=== PATIENT | female | born 1965 | race Caucasian/White ===

== ENCOUNTER 2017-11-16 13:09 | Emergency (ER) | payer MEDICAID ==
[2017-11-16 13:23] VITALS: BP 118/93
--- NOTE | 2017-11-16 13:37 | ED Physician Documentation ---
PD HPI URI - Stated complaint Stated Complaint: COUGH - Chief complaint Chief Complaint: Resp - History obtained from History obtained from: Patient - History of Present Illness Timing - onset: How many days ago (Several) Timing details: Gradual onset Associated symptoms: Productive cough. No: Fever Similar symptoms before: Diagnosis (Chronic bronchitis) - Additional information Additional information: The patient is a 52-year-old female who presents with cough of 3 days duration. It is productive of sputum. She denies associated fever, chest pain, or shortness of breath. She does have associated headache. Past history is significant for chronic bronchitis. In the past she has always been prescribed Zithromax for similar symptoms. She continues to smoke cigarettes. She has recently moved here from [place] and is concerned about running out of Lexapro. She has an appointment scheduled at a local clinic 2 weeks from now , but her current medication will not last that long. Review of Systems Constitutional: denies: Fever Eyes: denies: Irritation Nose: denies: Congestion Throat: denies: Sore throat Cardiac: denies: Chest pain / pressure Respiratory: reports: Cough. denies: Dyspnea GI: denies: Abdominal Pain, Nausea, Vomiting : denies: Dysuria Skin: denies: Rash Musculoskeletal: denies: Extremity swelling Neurologic: reports: Headache PD PAST MEDICAL HISTORY - Past Medical History Respiratory: COPD Endocrine/Autoimmune: None - Present Medications Home Medications: Ambulatory Orders Medication Instructions Recorded Confirmed Albuterol Sulfate [Proventil Hfa 1 - 2 puffs INH Q4H PRN #1 inhaler 11/16/17 Inhaler] Azithromycin [Zithromax] 250 mg PO DAILY #6 tablet 11/16/17 Escitalopram Oxalate [Lexapro] 20 mg PO DAILY #30 tablet 11/16/17 - Allergies Allergies/Adverse Reactions: Allergies Allergy/AdvReac Type Severity Reaction Status Date / Time No Known Drug Allergies Allergy Verified 11/16/17 13:23 - Social History Does the pt smoke?: Yes Smoking Status: Current every day smoker PD ED PE NORMAL - Vitals Vital signs reviewed: Yes (Borderline diastolic hypertension initially.) - General General: Alert and oriented X 3, Well developed/nourished - HEENT HEENT: Atraumatic, Ears normal, Moist mucous membranes, Pharynx benign - Neck Neck: No adenopathy, No JVD - Cardiac Cardiac: RRR - Respiratory Respiratory: Other (Few scattered coarse breath sounds.) - Abdomen Abdomen: Soft, Non tender - Back Back: No CVA TTP - Derm Derm: No rash - Extremities Extremities: No edema, No calf tenderness / cord - Neuro Neuro: Alert and oriented X 3, No motor deficit, Normal speech Results - Vitals Vitals: Vital Signs - 24 hr 11/16/17 13:19 Temperature 36.8 C Heart Rate 85 Respiratory 20 Rate Blood Pressure 118/93 H O2 Saturation 95 Oxygen O2 Source Room air PD MEDICAL DECISION MAKING - ED course Complexity details: considered differential, d/w patient ED course: The patient's presentation is most consistent with acute/recurrent bronchitis. Her presentation does not suggest pneumonia, congestive heart failure, and I doubt pulmonary embolus. She is being discharged with prescription for Zithromax and for albuterol inhaler. She was also given a prescription for Lexapro. I discussed with her the expected course of illness, encouraged her to stop smoking cigarettes, and discussed potentially worrisome signs or symptoms that should prompt reevaluation in the emergency department. - Sepsis Event Vital Signs: Vital Signs - 24 hr 11/16/17 13:19 Temperature 36.8 C Heart Rate 85 Respiratory 20 Rate Blood Pressure 118/93 H O2 Saturation 95 Oxygen O2 Source Room air Departure - Departure Disposition: 01 Home, Self Care Clinical Impression: Bronchitis Condition: Stable Instructions: ED COPD Flare Follow-Up: [facility] [Provider Group] Prescriptions: Albuterol Sulfate [Proventil Hfa Inhaler] 1 - 2 puffs INH Q4H PRN #1 inhaler PRN Reason: Shortness Of Air/Wheezing Azithromycin [Zithromax] 250 mg PO DAILY #6 tablet Escitalopram Oxalate [Lexapro] 20 mg PO DAILY #30 tablet Comments: Try to stop smoking cigarettes. Take Zithromax daily as prescribed. You can use albuterol inhaler as prescribed if needed for shortness of breath. Follow-up with primary physician within 2 weeks. Call to schedule appointment. Return to the emergency department if you develop increasing difficulty breathing, or otherwise worsening symptoms. Discharge Date/Time: 11/16/17 13:45
== END 2017-11-16 13:45 | disposition home or self-care (01) ==
LOC: ED 13:09
DX: J40 Bronchitis, not specified as acute or chronic (principal); F17.200 Nicotine dependence, unspecified, uncomplicated
CPT/HCPCS: 99283

== ENCOUNTER 2017-12-25 08:00 | Outpatient (CLI) | payer MEDICAID ==
[2017-12-25 12:43] LABS: BASOPHILS # (AUTO) 0.1 10^3/uL (0.0-0.1); BASOPHILS % (AUTO) 0.9 %; EOSINOPHILS # (AUTO) 0.4 10^3/uL (0.0-0.7); EOSINOPHILS % (AUTO) 3.7 %; HGB - HEMOGLOBIN 15.5 g/dL (12.0-16.0); LYMPHOCYTES # (AUTO) 2.3 10^3/uL (1.5-3.5); LYMPHOCYTES % (AUTO) 21.8 %; MEAN CORPUSCULAR HGB CONC 33.8 g/dL (32.0-36.0); MEAN CORPUSCULAR VOLUME 100.4 fL (81.0-99.0); MONOCYTES # (AUTO) 0.7 10^3/uL (0.0-1.0); MONOCYTES % (AUTO) 6.7 %; NEUTROPHILS % (AUTO) 66.9 %; PLT - PLATELET COUNT 221 10^3/uL (130-450); RED BLOOD COUNT 4.57 10^6/uL (4.20-5.40); RED CELL DISTRIBUTION WIDTH 13.2 % (12.0-15.0); WHITE BLOOD COUNT 10.5 x10^3/uL (4.8-10.8)
[2017-12-25 12:59] LABS: ALBUMIN 3.6 g/dL (3.2-5.5); ALBUMIN/GLOBULIN RATIO 1.1 (1.0-2.2); ALKALINE PHOSPHATASE 81 IU/L (42-121); ALT ALANINE AMINOTRANSFERASE 11 IU/L (10-60); AST ASPARTATE AMINOTRANSFERASE 18 IU/L (10-42); BILIRUBIN,TOTAL 0.4 mg/dL (0.2-1.0); BUN - BLOOD UREA NITROGEN 19 mg/dL (6-20); CALCIUM 8.9 mg/dL (8.5-10.3); CARBON DIOXIDE - CO2 27 mmol/L (21-32); CHLORIDE 102 mmol/L (101-111); CHOL/HDL RATIO 4.1 (<4.4); CHOLESTEROL 192 mg/dL; CREATININE 0.7 mg/dL (0.4-1.0); GFR - MDRD 88 (>89); GLUCOSE 120 mg/dL (70-100); HDL CHOLESTEROL 47 mg/dL; LDL CHOLESTEROL,CALCULATED 111 mg/dL; LDL/HDL RATIO 2.4 (<4.4); SODIUM 136 mmol/L (135-145); TOTAL PROTEIN 6.8 g/dL (6.7-8.2); VLDL CHOLESTEROL 34 mg/dL
[2017-12-25 13:10] LABS: HB2 TOTAL 16.4 g/dL; HEMOGLOBIN A1C 0.91 g/dL; HEMOGLOBIN A1C % 7.2 % (4.6-6.2)
[2017-12-25 13:19] LABS: THYROID STIMULATING HORMONE 1.82 uIU/mL (0.34-5.60)
[2017-12-25 13:30] LABS: FOLATE 22.1 ng/mL (5.90 - >24.8)
[2017-12-26 13:22] LABS: HEPATITIS C ANTIBODY NON-REACTIVE (NON-REACTIVE)
== END 2017-12-25 08:01 | disposition home or self-care (01) ==
LOC: LAB.N 08:00
PROVIDERS: ATTEND Nurse Practitioner
DX: E11.49 Type 2 diabetes mellitus with other diabetic neurological complication (principal); R53.83 Other fatigue; E55.9 Vitamin D deficiency, unspecified
CPT/HCPCS: 36415; 80053; 80061; 82043; 82306; 82607; 82746; 83036; 83721; 84443; 85025; 86803

== ENCOUNTER 2018-01-15 08:43 | Day surgery (SDC) | payer MEDICAID ==
[2018-01-15] MEDS ORDERED: LACTATED RINGERS 1,000 ML IV ONE (09:47)
[2018-01-15] MEDS ORDERED: fentaNYL 250 MCG/5 ML VIAL IVP ONE (10:19)
[2018-01-15] MEDS ORDERED: MIDAZOLAM 2 MG/2 ML VIAL IVP ONE (10:19)
[2018-01-15 11:51] VITALS: BP 112/87
== END 2018-01-15 08:44 | disposition home or self-care (01) ==
LOC: SDS 08:43
PROVIDERS: ATTEND Surgery
PROC: 0DJD8ZZ Inspection of Lower Intestinal Tract, Via Natural or Artificial Opening Endoscopic (ICD-10-PCS; principal; 2018-01-15 09:45)
DX: Z12.11 Encounter for screening for malignant neoplasm of colon (principal); I10 Essential (primary) hypertension; E11.9 Type 2 diabetes mellitus without complications; E66.9 Obesity, unspecified; Z68.37 Body mass index [BMI] 37.0-37.9, adult; F17.210 Nicotine dependence, cigarettes, uncomplicated
CPT/HCPCS: 45378; J3010; J7120

== ENCOUNTER 2018-02-05 14:18 | Outpatient (CLI) | payer MEDICAID ==
--- NOTE | 2018-02-18 16:03 | Mammography Report ---
Reason: SCREENING MAMMO Procedure Date: 02/05/2018 Accession Number: [id number] / [id number] Procedure: MGN - Screening Mammo Dig Bilat CPT Code: FULL RESULT: EXAM: Screening Mammo Dig Bilat DATE: 02/05/2018 2:41 PM CLINICAL HISTORY: 52-year-old female with family history of breast cancer in the mother above the age of 65. TECHNIQUE: Bilateral CC and MLO views were obtained. COMPARISON: No studies are available for comparison at the time of interpretation. FINDINGS: The breasts demonstrate scattered fibroglandular densities bilaterally. There are typically benign coarse calcifications in the left breast. No suspicious masses, clustered microcalcifications, or regions of architectural distortion are identified. IMPRESSION: Benign findings RECOMMENDATION: Routine annual screening unless otherwise clinically indicated. BIRADS CATEGORY 2: Benign findings STANDARD QUALIFYING STATEMENTS: 1. This examination was reviewed with the aid of Computer-Aided Detection (CAD). 2. A negative or benign imaging report should not delay biopsy if clinically suspicious findings are present. Consider surgical consultation if warrented. More than 5% of cancers are not identified by imaging. 3. Dense breasts may obscure an underlying neoplasm.
== END 2018-02-05 14:19 | disposition home or self-care (01) ==
LOC: DI.N 14:18
PROVIDERS: ATTEND Nurse Practitioner
DX: Z12.31 Encounter for screening mammogram for malignant neoplasm of breast (principal); Z85.3 Personal history of malignant neoplasm of breast
CPT/HCPCS: 77067

== ENCOUNTER 2018-05-08 15:25 | Outpatient (CLI) | payer MEDICAID ==
--- NOTE | 2018-05-09 09:20 | XRAY Report ---
Reason: bilateral joint pain shoulder Procedure Date: 05/08/2018 Accession Number: [id number] / [id number] Procedure: XRN - Shoulder 3 View BILAT CPT Code: FULL RESULT: Bilateral Shoulder Radiography EXAM DATE: 05/08/2018 03:56 PM. CLINICAL HISTORY: Bilateral joint pain shoulder. COMPARISON: None. TECHNIQUE: 3 views each. FINDINGS: Right: Bones: Normal. No fracture or bone lesion. Joints: Mild degenerative change of the acromioclavicular joint. No glenohumeral dislocation. Soft tissues: The visualized hemithorax is unremarkable. No soft tissue swelling. Left: Bones: Normal. No fracture or bone lesion. Joints: Mild degenerative change of the acromioclavicular joint. No glenohumeral dislocation. Soft tissues: The visualized hemithorax is unremarkable. No soft tissue swelling. IMPRESSION: Mild AC joint degenerative changes without glenohumeral dislocation or fracture. RADIA
== END 2018-05-08 15:26 | disposition home or self-care (01) ==
LOC: DI.N 15:25
PROVIDERS: ATTEND Nurse Practitioner
DX: M19.012 Primary osteoarthritis, left shoulder (principal); M19.011 Primary osteoarthritis, right shoulder

== ENCOUNTER 2018-06-30 13:01 | Outpatient (CLI) | payer MEDICAID ==
[2018-06-30] MEDS ORDERED: ALBUTEROL NEB 2.5 MG/3 ML INH ONE (14:00)
== END 2018-06-30 13:02 | disposition home or self-care (01) ==
LOC: RT 13:01
PROVIDERS: ATTEND Nurse Practitioner
DX: R06.2 Wheezing (principal)
CPT/HCPCS: 94060

== ENCOUNTER 2018-07-29 08:00 | Outpatient (CLI) | payer MEDICAID ==
[2018-07-29 20:10] LABS: ALBUMIN 3.9 g/dL (3.2-5.5); ALBUMIN/GLOBULIN RATIO 1.1 (1.0-2.2); ALKALINE PHOSPHATASE 102 IU/L (42-121); ALT ALANINE AMINOTRANSFERASE 14 IU/L (10-60); AST ASPARTATE AMINOTRANSFERASE 16 IU/L (10-42); BILIRUBIN,TOTAL 0.6 mg/dL (0.2-1.0); BUN - BLOOD UREA NITROGEN 14 mg/dL (6-20); CALCIUM 9.4 mg/dL (8.5-10.3); CARBON DIOXIDE - CO2 29 mmol/L (21-32); CHLORIDE 99 mmol/L (101-111); CHOL/HDL RATIO 3.9 (<4.4); CHOLESTEROL 216 mg/dL; CREATININE 0.7 mg/dL (0.4-1.0); GFR - MDRD 87 (>89); GLUCOSE 198 mg/dL (70-100); HDL CHOLESTEROL 55 mg/dL; LDL CHOLESTEROL,CALCULATED 133 mg/dL; LDL/HDL RATIO 2.4 (<4.4); SODIUM 137 mmol/L (135-145); TOTAL PROTEIN 7.4 g/dL (6.7-8.2); VLDL CHOLESTEROL 28 mg/dL
[2018-07-29 20:49] LABS: HB2 TOTAL 17.5 g/dL; HEMOGLOBIN A1C 1.36 g/dL; HEMOGLOBIN A1C % 9.3 % (4.6-6.2)
== END 2018-07-29 08:01 | disposition home or self-care (01) ==
LOC: LAB.N 08:00
PROVIDERS: ATTEND Nurse Practitioner
DX: E11.49 Type 2 diabetes mellitus with other diabetic neurological complication (principal)
CPT/HCPCS: 36415; 80053; 80061; 82043; 83036; 83721; 84443

== ENCOUNTER 2018-11-13 08:00 | Outpatient (CLI) | payer MEDICAID ==
[2018-11-13 19:17] LABS: ALBUMIN/GLOBULIN RATIO 1.1 (1.0-2.2); ALKALINE PHOSPHATASE 107 IU/L (42-121); ALT ALANINE AMINOTRANSFERASE 12 IU/L (10-60); AST ASPARTATE AMINOTRANSFERASE 14 IU/L (10-42); BILIRUBIN,TOTAL 0.9 mg/dL (0.2-1.0); BUN - BLOOD UREA NITROGEN 14 mg/dL (6-20); CARBON DIOXIDE - CO2 24 mmol/L (21-32); CHLORIDE 98 mmol/L (101-111); CHOL/HDL RATIO 4.4 (<4.4); CHOLESTEROL 197 mg/dL; CREATININE 0.8 mg/dL (0.4-1.0); GFR - MDRD 75 (>89); GLUCOSE 199 mg/dL (70-100); HDL CHOLESTEROL 45 mg/dL; LDL CHOLESTEROL,CALCULATED 118 mg/dL; LDL/HDL RATIO 2.6 (<4.4); SODIUM 134 mmol/L (135-145); TOTAL PROTEIN 7.7 g/dL (6.7-8.2); VLDL CHOLESTEROL 34 mg/dL
== END 2018-11-13 23:59 | disposition home or self-care (01) ==
LOC: LAB.N 08:00
PROVIDERS: ATTEND Nurse Practitioner Gerontology
DX: E55.9 Vitamin D deficiency, unspecified (principal)
CPT/HCPCS: 36415; 80053; 80061; 81599; 82043; 82570; 83036; 83721; 84443

== ENCOUNTER 2018-12-04 01:58 | Emergency (ER) | payer MEDICAID ==
--- NOTE | 2018-12-04 02:41 | ED Physician Documentation ---
PD HPI HEENT - Stated complaint Stated Complaint: SORE THROAT - Chief complaint Chief Complaint: Heent - History obtained from History obtained from: Patient - History of Present Illness Timing - onset: How many days ago (2) Timing - duration: Days Timing - details: Gradual onset, Constant, Waxing and waning Pain level now: 8 Location: Throat Improves: Nothing Worsens: Swalllowing Associated symptoms: Fever (subjective (did not take temperature at home but chills/sweats)) Similar symptoms before: Has not had sx before Recently seen: Not recently seen Review of Systems Constitutional: reports: Chills, Sweats Throat: reports: Sore throat PD PAST MEDICAL HISTORY - Past Medical History Cardiovascular: Hypertension, High cholesterol, [place] Respiratory: Asthma, Other Endocrine/Autoimmune: Type 2 diabetes GI: None : None HEENT: None Psych: Depression, Anxiety Musculoskeletal: None Derm: None - Past Surgical History /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[employer]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 - Present Medications Home Medications: Ambulatory Orders Medication Instructions Recorded Confirmed Albuterol Sulfate [Proventil Hfa 1 - 2 puffs INH Q4H PRN #1 inhaler 11/16/17 12/04/18 Inhaler] Aspirin [Adult Low Dose Aspirin EC] 81 mg .ROUTE DAILY 01/15/18 12/04/18 Atorvastatin Calcium 20 mg PO DAILY 01/15/18 12/04/18 Empagliflozin [Jardiance] 25 mg PO DAILY 01/15/18 12/04/18 Escitalopram Oxalate [Lexapro] 20 mg PO DAILY 01/15/18 12/04/18 Lisinopril 10 mg PO DAILY 01/15/18 12/04/18 SITagliptin [Januvia] 100 mg PO DAILY 01/15/18 12/04/18 Varenicline Tartrate [Chantix] 1 mg PO DAILY 01/15/18 12/04/18 clonazePAM [Clonazepam] 0.5 mg PO DAILY 01/15/18 12/04/18 HYDROcod/ACETAM 5/325 [[place] 5/325] 1 - 2 ea PO Q6H PRN #15 tablet 12/04/18 Lidocaine Viscous 2% [Xylocaine 15 ml MM Q4H PRN #1 bottle 12/04/18 Viscous 2%] - Allergies Allergies/Adverse Reactions: Allergies Allergy/AdvReac Type Severity Reaction Status Date / Time No Known Drug Allergies Allergy Verified 12/04/18 02:34 - Social History Does the pt smoke?: Yes Smoking Status: Current every day smoker PD ED PE NORMAL - Vitals Vital signs reviewed: Yes - General General: Alert and oriented X 3, Well developed/nourished, Other (appears uncomfortable) - HEENT HEENT: Moist mucous membranes - Neck Neck: Supple, no meningeal sign PD ED PE EXPANDED - HEENT HEENT: Pharyngeal erythema, Swollen tonsils, Tonsillar exudate Results - Vitals Vitals: Vital Signs - 24 hr 12/04/18 12/04/18 12/04/18 02:30 03:30 04:00 Temperature 37.0 C 39.5 C H 37.4 C Heart Rate 125 H 115 H 108 H Respiratory 18 20 18 Rate Blood Pressure 143/96 H 101/61 101/64 O2 Saturation 95 94 95 Oxygen O2 Source Room air - Labs Labs: Laboratory Tests 12/04/18 12/04/18 02:35 02:40 POC Whole Bld Glucose 195 H Group A Strep Rapid POSITIVE H PD MEDICAL DECISION MAKING - ED course Complexity details: reviewed results, re-evaluated patient, considered differential, d/w patient ED course: Patient requests IM antibiotic. I explained that this is a particularly painful shot but it is also quite effective and can be given as a one-time dose (no rx antibiotic needed) and she confirms she wants the IM injection; bicillin L-A 1.2 million units given Departure - Departure Disposition: 01 Home, Self Care Clinical Impression: Strep pharyngitis Condition: Good Health Concerns: strep throat Plan of Treatment: antibiotic given in ER (one time dose). prescription analgesic Care Goals: relief of symptoms until resolution of infection Assessment: see diagnosis Instructions: ED Strep Pharyngitis Conf Follow-Up: Lilliam Concepcion ARNP [Primary Care Provider] - (3-4 days if symptoms not improving) Prescriptions: HYDROcod/ACETAM 5/325 [[place] 5/325] 1 - 2 ea PO Q6H PRN #15 tablet PRN Reason: Pain Lidocaine Viscous 2% [Xylocaine Viscous 2%] 15 ml MM Q4H PRN #1 bottle PRN Reason: Pain Discharge Date/Time: 12/04/18 04:03
[2018-12-04] MEDS ORDERED: LIDOCAINE VISCOUS 2% 15 ML UDC MM STA (03:03)
[2018-12-04] MEDS ORDERED: PENICILLIN G BENZATHINE 600,000 UNIT/ML SYRINGE IM STA (03:03)
[2018-12-04] MEDS ORDERED: HYDROcod/ACET 5/325 Prepack 4 PO STA (03:04)
[2018-12-04 04:03] VITALS: BP 101/64
== END 2018-12-04 04:03 | disposition home or self-care (01) ==
LOC: ED 01:58
DX: J02.0 Streptococcal pharyngitis (principal); I10 Essential (primary) hypertension; E11.9 Type 2 diabetes mellitus without complications; Z79.84 Long term (current) use of oral hypoglycemic drugs; Z79.82 Long term (current) use of aspirin; F17.200 Nicotine dependence, unspecified, uncomplicated
CPT/HCPCS: 87430; 96372; 99283

== ENCOUNTER 2019-02-07 08:00 | Outpatient (CLI) | payer MEDICAID ==
[2019-02-07 19:17] LABS: HB2 TOTAL 17.2 g/dL; HEMOGLOBIN A1C 1.09 g/dL; HEMOGLOBIN A1C % 7.9 % (4.6-6.2)
== END 2019-02-07 23:59 | disposition home or self-care (01) ==
LOC: LAB.N 08:00
PROVIDERS: ATTEND Nurse Practitioner Gerontology
DX: E11.49 Type 2 diabetes mellitus with other diabetic neurological complication (principal)
CPT/HCPCS: 36415; 83036

== ENCOUNTER 2019-05-20 13:53 | Outpatient (CLI) | payer MEDICAID ==
[2019-05-20 19:09] LABS: CALCIUM 10.2 mg/dL (8.5-10.3); CREATININE 0.9 mg/dL (0.4-1.0)
[2019-05-20 19:24] LABS: CREATININE,URINE 98.7 mg/dL; MICROALBUMIN,URINE 0.3 mg/dL (0-300.0)
[2019-05-20 19:48] LABS: HB2 TOTAL 17.7 g/dL; HEMOGLOBIN A1C 1.03 g/dL; HEMOGLOBIN A1C % 7.5 % (4.6-6.2)
== END 2019-05-20 23:59 | disposition home or self-care (01) ==
LOC: LAB.N 13:53
PROVIDERS: ATTEND Nurse Practitioner Gerontology
DX: E11.49 Type 2 diabetes mellitus with other diabetic neurological complication (principal)
CPT/HCPCS: 36415; 80048; 82043; 82570; 83036

== ENCOUNTER 2019-05-23 12:28 | Outpatient (CLI) | payer MEDICAID ==
--- NOTE | 2019-05-26 08:36 | Mammography Report ---
Reason: ROUTINE MAMMO Procedure Date: 05/23/2019 Accession Number: [id number] / [id number] Procedure: MGN - Screening Mammo Dig Bilat CPT Code: Final Report FULL RESULT: EXAM: Screening Mammo Dig Bilat DATE: 05/23/2019 12:56 PM CLINICAL HISTORY: Screening encounter. History of early menses. Family history of breast cancer in the mother at the age of 65. TECHNIQUE: (B) - Bilateral CC and MLO views were obtained. COMPARISON: 02/05/2018. PARENCHYMAL PATTERN: (A) - The breast(s) demonstrate(s) scattered fibroglandular densities. FINDINGS: There are no suspicious masses, calcifications, or areas of distortion. IMPRESSION: Negative examination. BI-RADS category 1. RECOMMENDATION: (ANNUAL) - Recommend routine annual screening mammography. BI-RADS CATEGORY: (1) - Negative. STANDARD QUALIFYING STATEMENTS: 1. This examination was not reviewed with the aid of Computer-Aided Detection (CAD). 2. A negative or benign imaging report should not preclude biopsy if clinically suspicious findings are present. 3. Dense breasts may obscure an underlying neoplasm. 4. This examination was reviewed without the aid of 3D breast imaging (tomosynthesis).
== END 2019-05-23 12:29 | disposition home or self-care (01) ==
LOC: DI.N 12:28
PROVIDERS: ATTEND Nurse Practitioner Gerontology
DX: Z12.31 Encounter for screening mammogram for malignant neoplasm of breast (principal); Z80.3 Family history of malignant neoplasm of breast
CPT/HCPCS: 77067

== ENCOUNTER 2019-06-24 11:17 | Emergency (ER) | payer MEDICAID ==
[2019-06-24 12:27] VITALS: BP 119/84
[2019-06-24] MEDS ORDERED: BUPIVACAINE 0.5%-EPI 1:200000 PF 10 ML VIAL SUBQ STA (12:30)
--- NOTE | 2019-06-24 12:33 | ED Physician Documentation ---
PD HPI HEENT FB - Chief complaint Chief Complaint: Heent - History obtained from History obtained from: Patient - History of Present Illness Timing - onset: Yesterday (This is a 54-year-old woman who presents by private vehicle for complaints of dental pain and facial swelling, that the pain is been going on for a long time, she has not seen a dentist since 2012 because that is when her dental insurance lapsed. The swelling started yesterday is now quite impressive, she has not had any fevers or chills.) Review of Systems Constitutional: denies: Fever, Chills Nose: denies: Rhinorrhea / runny nose, Congestion Throat: reports: Dental pain / toothache. 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 - Present Medications Home Medications: Ambulatory Orders Medication Instructions Recorded Confirmed Albuterol Sulfate [Proventil Hfa 1 - 2 puffs INH Q4H PRN #1 inhaler 11/16/17 12/04/18 Inhaler] Aspirin [Adult Low Dose Aspirin EC] 81 mg .ROUTE DAILY 01/15/18 12/04/18 Atorvastatin Calcium 20 mg PO DAILY 01/15/18 12/04/18 Empagliflozin [Jardiance] 25 mg PO DAILY 01/15/18 12/04/18 Escitalopram Oxalate [Lexapro] 20 mg PO DAILY 01/15/18 12/04/18 SITagliptin [Januvia] 100 mg PO DAILY 01/15/18 12/04/18 Varenicline Tartrate [Chantix] 1 mg PO DAILY 01/15/18 12/04/18 clonazePAM [Clonazepam] 0.5 mg PO DAILY 01/15/18 12/04/18 lisinopriL [Lisinopril] 10 mg PO DAILY 01/15/18 12/04/18 HYDROcod/ACETAM 5/325 [[place] 5/325] 1 - 2 ea PO Q6H PRN #15 tablet 12/04/18 Lidocaine Viscous 2% [Xylocaine 15 ml MM Q4H PRN #1 bottle 12/04/18 Viscous 2%] Clindamycin HCl [Clindamycin 300MG 300 mg PO Q6H #40 capsule 06/24/19 CAP] Oxycodone HCl/Acetaminophen 1 - 2 each PO Q6H PRN #14 tablet 06/24/19 [Percocet 5-325 mg Tablet] - Allergies Allergies/Adverse Reactions: Allergies Allergy/AdvReac Type Severity Reaction Status Date / Time No Known Drug Allergies Allergy Verified 06/24/19 11:50 - Social History Does the pt smoke?: Yes Smoking Status: Current every day smoker Does the pt drink ETOH?: Yes Does the pt have substance abuse?: Yes Substance Use and Type: Marijuana - Immunizations Immunizations are current?: Yes - POLST Patient has POLST: No PD ED PE NORMAL - Vitals Vital signs reviewed: Yes - General General: Alert and oriented X 3, No acute distress - HEENT HEENT: PERRL, EOMI, Other (She has generally poor dentition with large cavities of the last 2 remaining molars on the right man is a large overlying gingival abscess with reactive facial swelling. No sublingual edema or trismus.) - Neck Neck: Supple, no meningeal sign, No bony TTP - Neuro Neuro: Alert and oriented X 3, Normal speech - Psych Psych: Normal mood, Normal affect Results - Vitals Vitals: Vital Signs - 24 hr 06/24/19 06/24/19 11:41 12:26 Temperature 36.1 C L 37 C Heart Rate 107 H 118 H Respiratory 22 16 Rate Blood Pressure 118/83 H 119/84 H O2 Saturation 98 96 Oxygen O2 Source Room air Procedures - Abscess I&D (location) right mandibular abscess Preparation: Lidocaine 1% (right inferior alveolar block) Incision: Incised with scalpel. No: Purulent drainage Other: Pt tolerated well, Antibiotic prescribed Departure - Departure Disposition: Home, Self Care Clinical Impression: Dental abscess Condition: Good Record reviewed to determine appropriate education?: Yes Instructions: ED Dental Abscess Facial Cellulitis Prescriptions: Clindamycin HCl [Clindamycin 300MG CAP] 300 mg PO Q6H #40 capsule Oxycodone HCl/Acetaminophen [Percocet 5-325 mg Tablet] 1 - 2 each PO Q6H PRN #14 tablet PRN Reason: pain Comments: It is very important that you follow-up with a dentist. When it comes to dental problems like yours, the emergency department can only offer a short-term solution to your long-term problem. A couple of low cost options for dental care include: [facility] in [place], calls [phone] for an appointment Or [facility] in [place], call [phone] for an appointment.
[2019-06-24] MEDS ORDERED: BUFFERED LIDOCAINE 10 ML SYRINGE ONE (12:41)
== END 2019-06-24 13:13 | disposition home or self-care (01) ==
LOC: ED 11:17
DX: K04.7 Periapical abscess without sinus (principal); K02.9 Dental caries, unspecified; I10 Essential (primary) hypertension; E11.9 Type 2 diabetes mellitus without complications; Z79.84 Long term (current) use of oral hypoglycemic drugs; Z79.82 Long term (current) use of aspirin; F17.200 Nicotine dependence, unspecified, uncomplicated
CPT/HCPCS: 41800; 99282; 99284

== ENCOUNTER 2019-09-12 14:42 | Emergency (ER) | payer MEDICAID ==
[2019-09-12 15:11] VITALS: BP 115/84
[2019-09-12 15:22] LABS: RAPID STREP SCREEN Negative (Negative)
--- NOTE | 2019-09-12 15:41 | ED Physician Documentation ---
PD HPI URI - Stated complaint Stated Complaint: THROAT PX - Chief complaint Chief Complaint: Heent - History obtained from History obtained from: Patient - History of Present Illness Timing - onset: How many days ago (2) Timing duration: Days (2) Timing details: Abrupt onset, Still present Associated symptoms: Chills, Sore throat, Swollen nodes. No: Nasal congestion, Dry cough Contributing factors: No: Sick contact, Travel, Immunocompromised Similar symptoms before: Diagnosis (strep tonsillitis last fall.) Recently seen: Not recently seen (tried to get to PCP but was told to come to ER.) Review of Systems Constitutional: reports: Fever, Chills Nose: denies: Rhinorrhea / runny nose, Congestion Throat: reports: Sore throat, Swollen tonsils Respiratory: denies: Cough GI: denies: Nausea, Vomiting Skin: denies: Rash, Lesions PD PAST MEDICAL HISTORY - Past Medical History Past Medical History: Yes Cardiovascular: Hypertension, High cholesterol, [place] Respiratory: Asthma, Other Endocrine/Autoimmune: Type 2 diabetes GI: None : None HEENT: None Psych: Depression, Anxiety Musculoskeletal: None Derm: None - 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 - Present Medications Home Medications: Ambulatory Orders Medication Instructions Recorded Confirmed Albuterol Sulfate [Proventil Hfa 1 - 2 puffs INH Q4H PRN #1 inhaler 11/16/17 12/04/18 Inhaler] Aspirin [Adult Low Dose Aspirin EC] 81 mg .ROUTE DAILY 01/15/18 12/04/18 Atorvastatin Calcium 20 mg PO DAILY 01/15/18 12/04/18 Empagliflozin [Jardiance] 25 mg PO DAILY 01/15/18 12/04/18 Escitalopram Oxalate [Lexapro] 20 mg PO DAILY 01/15/18 12/04/18 SITagliptin [Januvia] 100 mg PO DAILY 01/15/18 12/04/18 Varenicline Tartrate [Chantix] 1 mg PO DAILY 01/15/18 12/04/18 clonazePAM [Clonazepam] 0.5 mg PO DAILY 01/15/18 12/04/18 lisinopriL [Lisinopril] 10 mg PO DAILY 01/15/18 12/04/18 HYDROcod/ACETAM 5/325 [[place] 5/325] 1 - 2 ea PO Q6H PRN #15 tablet 12/04/18 Lidocaine Viscous 2% [Xylocaine 15 ml MM Q4H PRN #1 bottle 12/04/18 Viscous 2%] Clindamycin HCl [Clindamycin 300MG 300 mg PO Q6H #40 capsule 06/24/19 CAP] Oxycodone HCl/Acetaminophen 1 - 2 each PO Q6H PRN #14 tablet 06/24/19 [Percocet 5-325 mg Tablet] Cephalexin [Keflex] 500 mg PO TID #20 capsule 09/12/19 Oxycodone HCl/Acetaminophen 1 each PO Q6H PRN #12 tablet 09/12/19 [Percocet 10-325 mg Tablet] dexAMETHasone [Decadron] 4 mg PO DAILY #5 tablet 09/12/19 - Allergies Allergies/Adverse Reactions: Allergies Allergy/AdvReac Type Severity Reaction Status Date / Time No Known Drug Allergies Allergy Verified 09/12/19 15:11 - Social History Does the pt smoke?: Yes Smoking Status: Current every day smoker Does the pt drink ETOH?: Yes Does the pt have substance abuse?: Yes - Immunizations Immunizations are current?: Yes - POLST Patient has POLST: No PD ED PE NORMAL - Vitals Vital signs reviewed: Yes - General General: Alert and oriented X 3, No acute distress (hurts to swallow), Well developed/nourished - HEENT HEENT: No: Pharynx benign (both tonsils swollen without peritonsillar edema. Exudates noted, and she has submandibular swollen glands) - Neck Neck: Supple, no meningeal sign - Cardiac Cardiac: RRR, No murmur - Respiratory Respiratory: Clear bilaterally - Derm Derm: Normal color, Warm and dry Results - Vitals Vitals: Vital Signs - 24 hr 09/12/19 09/12/19 15:09 16:40 Temperature 36.7 C Heart Rate 110 H 105 H Respiratory 16 Rate Blood Pressure 115/84 H O2 Saturation 98 98 Oxygen O2 Source Room air - Labs Labs: Laboratory Tests 09/12/19 15:05 Group A Strep Rapid Negative Departure - Departure Disposition: 01 Home, Self Care Clinical Impression: Exudative tonsillitis Condition: Stable Record reviewed to determine appropriate education?: Yes Instructions: ED Strep Pharyngitis Poss Prescriptions: Cephalexin [Keflex] 500 mg PO TID #20 capsule dexAMETHasone [Decadron] 4 mg PO DAILY #5 tablet Oxycodone HCl/Acetaminophen [Percocet 10-325 mg Tablet] 1 each PO Q6H PRN #12 tablet PRN Reason: Pain Comments: Stay well-hydrated and drink lots of fluids. Cephalexin as directed for the next week at least pending the culture result. Clinically this looks enough bacterial to treated as such. Decadron steroid for inflammation daily for the next several days. Add ibuprofen or naproxen 2-3 times a day for pain and to that add Tylenol or oxycodone if needed for worse pain. I would anticipate the pain to decrease considerably over the next couple of days so you should not be needing pain medicines for very long. Your rapid strep test was negative but is not completely accurate. The culture should result in about 3 days. Discharge Date/Time: 09/12/19 16:40
[2019-09-12] MEDS ORDERED: DEXAMETHASONE 10 MG/ML VIAL PO STA (16:16)
[2019-09-12] MEDS ORDERED: cephALEXin 250 MG CAPSULE PO STA (16:16)
[2019-09-12] MEDS ORDERED: CHERRY SYRUP 10 ML UDC PO ONE (16:16)
[2019-09-12] MEDS ORDERED: oxyCODONE 5 MG TABLET PO STA (16:18)
== END 2019-09-12 16:40 | disposition home or self-care (01) ==
LOC: ED 14:42
DX: J03.90 Acute tonsillitis, unspecified (principal); I10 Essential (primary) hypertension; E11.9 Type 2 diabetes mellitus without complications; F17.200 Nicotine dependence, unspecified, uncomplicated; Z79.84 Long term (current) use of oral hypoglycemic drugs
CPT/HCPCS: 87070; 87077; 87430; 99283; A9270

== ENCOUNTER 2019-11-03 01:34 | Emergency (ER) | payer MEDICAID ==
--- NOTE | 2019-11-03 01:46 | ED Physician Documentation ---
PD HPI CHEST PAIN - Stated complaint Stated Complaint: CHEST DISCOMFORT - History obtained from History obtained from: Patient - History of Present Illness Timing - onset: Enter time (23:30), Today Timing - onset during: Other (vomiting) Timing - details: Abrupt onset Pain level now: 4 Quality: Other (per patient, "feels like something stuck", "like a blockage") Location: Substernal Radiation: Other (no radiation) Improved by: Nothing Worsened by: Other (no ameliorating factors) Associated symptoms: Nausea, Vomiting. No: Shortness of air, Diaphoresis, Feeling faint / dizzy, General Weakness, Palpitations Similar symptoms before: Has not had sx before Recently seen: Not recently seen - Additional information Additional information: patient says she woke up this morning at approximately 8:30 AM with nausea, vomiting, chills, diaphoresis. She says "I haven't eaten anything all day" because of these symptoms. denies diarrhea. At 11:30 PM tonight, she was vomiting when she developed sudden sensation of midline chest discomfort. She has difficulty describing the discomfort to me; she says "it's not a pain, just uncomfortable" and repeatedly returns to description of "like a blockage, like something's stuck that has to be cleared". I ask if she means a blockage in her heart or circulation, and she says this is not what she means, but she also says she isn't trying to describe sensation of something stuck in her esophagus, either. Asked to show where her pain is, she clenches a fist and places it over her midline chest Review of Systems Constitutional: reports: Fever (subjective (did not take temperature at home)), Chills, Sweats Eyes: reports: Reviewed and negative Ears: reports: Reviewed and negative Nose: reports: Reviewed and negative Throat: reports: Sore throat, Reviewed and negative Cardiac: reports: Chest pain / pressure. denies: Palpitations, Pedal edema, Calf pain Respiratory: reports: Reviewed and negative GI: reports: Nausea, Vomiting. denies: Abdominal Pain, Abdominal Swelling, Constipation, Diarrhea : denies: Dysuria, Frequency Skin: reports: Reviewed and negative Musculoskeletal: reports: Reviewed and negative Neurologic: reports: Reviewed and negative PD PAST MEDICAL HISTORY - Past Medical History Past Medical History: Yes Cardiovascular: Hypertension, High cholesterol, [place], Other (regarding cardiac history, patient says she had an cardiac cath/angio in 2013 which, per patient, revealed no abnormalities; she says she was told she had a "stress-induced heart attack") Respiratory: Asthma, Other Endocrine/Autoimmune: Type 2 diabetes GI: None : None HEENT: None Psych: Depression, Anxiety Musculoskeletal: None Derm: None - 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 - Present Medications Home Medications: Ambulatory Orders Medication Instructions Recorded Confirmed Albuterol Sulfate [Proventil Hfa 1 - 2 puffs INH Q4H PRN #1 inhaler 11/16/17 12/04/18 Inhaler] Aspirin [Adult Low Dose Aspirin EC] 81 mg .ROUTE DAILY 01/15/18 12/04/18 Atorvastatin Calcium 20 mg PO DAILY 01/15/18 12/04/18 Empagliflozin [Jardiance] 25 mg PO DAILY 01/15/18 12/04/18 Escitalopram Oxalate [Lexapro] 20 mg PO DAILY 01/15/18 12/04/18 SITagliptin [Januvia] 100 mg PO DAILY 01/15/18 12/04/18 Varenicline Tartrate [Chantix] 1 mg PO DAILY 01/15/18 12/04/18 clonazePAM [Clonazepam] 0.5 mg PO DAILY 01/15/18 12/04/18 lisinopriL [Lisinopril] 10 mg PO DAILY 01/15/18 12/04/18 HYDROcod/ACETAM 5/325 [[place] 5/325] 1 - 2 ea PO Q6H PRN #15 tablet 12/04/18 Lidocaine Viscous 2% [Xylocaine 15 ml MM Q4H PRN #1 bottle 12/04/18 Viscous 2%] Clindamycin HCl [Clindamycin 300MG 300 mg PO Q6H #40 capsule 06/24/19 CAP] Oxycodone HCl/Acetaminophen 1 - 2 each PO Q6H PRN #14 tablet 06/24/19 [Percocet 5-325 mg Tablet] Cephalexin [Keflex] 500 mg PO TID #20 capsule 09/12/19 Oxycodone HCl/Acetaminophen 1 each PO Q6H PRN #12 tablet 09/12/19 [Percocet 10-325 mg Tablet] dexAMETHasone [Decadron] 4 mg PO DAILY #5 tablet 09/12/19 - Allergies Allergies/Adverse Reactions: Allergies Allergy/AdvReac Type Severity Reaction Status Date / Time No Known Drug Allergies Allergy Verified 11/03/19 01:46 - Social History Does the pt smoke?: Yes Smoking Status: Current every day smoker Does the pt drink ETOH?: Yes Does the pt have substance abuse?: Yes - Immunizations Immunizations are current?: Yes - POLST Patient has POLST: No PD ED PE NORMAL - Vitals Vital signs reviewed: Yes - General General: Alert and oriented X 3, Well developed/nourished, Other (appears uncomfortable) - HEENT HEENT: Moist mucous membranes - Neck Neck: Supple, no meningeal sign - Cardiac Cardiac: RRR, No murmur, No gallop, No rub - Respiratory Respiratory: No respiratory distress, Clear bilaterally - Abdomen Abdomen: Normal bowel sounds, Soft, Non tender, Non distended - Back Back: No CVA TTP - Derm Derm: Normal color, Warm and dry, No rash - Extremities Extremities: No edema - Neuro Neuro: Alert and oriented X 3 Results - Vitals Vitals: Vital Signs - 24 hr 11/03/19 11/03/19 11/03/19 01:46 03:11 03:50 Temperature 36.9 C Heart Rate 116 H 90 88 Respiratory 22 17 18 Rate Blood Pressure 130/91 H 134/68 H 111/65 O2 Saturation 99 94 93 Oxygen O2 Source Room air - EKG (time done) No standard instances Rate: Rate (enter#) (109), Tachy Rhythm: Sinus tachycardia [place]: Normal Intervals: Normal [place] QRS: Low voltage Ischemia: Normal ST segments #2 Rate: Rate (enter#) (92) Rhythm: NSR [place]: LAD Intervals: Normal FL QRS: Low voltage Ischemia: Normal ST segments, Q waves (III, aVF) - Labs Labs: Laboratory Tests 11/03/19 11/03/19 11/03/19 02:07 02:07 02:07 WBC 22.0 H RBC 5.28 Hgb 16.9 H Hct 50.6 H MCV 95.8 MCH 32.0 H MCHC 33.4 RDW 12.6 Plt Count 336 MPV 9.6 Neut # (Auto) 19.3 H Lymph # (Auto) 1.5 [place] # (Auto) 0.8 Eos # (Auto) 0.0 Baso # (Auto) 0.1 Absolute Nucleated RBC 0.00 Band Neuts % (Manual) Not Reportable Abnorm Lymph % (Manual) Not Reportable Nucleated RBC % 0.0 Neutrophils # (Manual) Not Reportable Lymphocytes # (Manual) Not Reportable Monocytes # (Manual) Not Reportable Eosinophils # (Manual) Not Reportable Basophils # (Manual) Not Reportable Differential Comment MANUAL=AUTO DIFF WBC Morphology NORMAL APPEARANCE Platelet Estimate NORMAL (130-450,000) Platelet Morphology NORMAL APPEARANCE RBC Morph Micro Appear NORMAL APPEARANCE D-Dimer Sodium 133 L Potassium 3.9 Chloride 94 L Carbon Dioxide 22 Anion Gap 17.0 H BUN 15 Creatinine 0.9 Estimated GFR (MDRD) 65 L Glucose 270 H Calcium 9.4 Total Bilirubin 1.2 H AST 25 ALT 16 Alkaline Phosphatase 127 H Troponin I High Sens 826.8 H* Total Protein 8.6 H Albumin 4.3 Globulin 4.3 H Albumin/Globulin Ratio 1.0 Lipase 24 11/02/ 02:07 WBC RBC Hgb Hct MCV MCH MCHC RDW Plt Count MPV Neut # (Auto) Lymph # (Auto) [place] # (Auto) Eos # (Auto) Baso # (Auto) Absolute Nucleated RBC Band Neuts % (Manual) Abnorm Lymph % (Manual) Nucleated RBC % Neutrophils # (Manual) Lymphocytes # (Manual) Monocytes # (Manual) Eosinophils # (Manual) Basophils # (Manual) Differential Comment WBC Morphology Platelet Estimate Platelet Morphology RBC Morph Micro Appear D-Dimer 270.5 H Sodium Potassium Chloride Carbon Dioxide Anion Gap BUN Creatinine Estimated GFR (MDRD) Glucose Calcium Total Bilirubin AST ALT Alkaline Phosphatase Troponin I High Sens Total Protein Albumin Globulin Albumin/Globulin Ratio Lipase - Rads (name of study) chest xray Radiology: Prelim report reviewed, See rad report PD MEDICAL DECISION MAKING - ED course Complexity details: reviewed results, re-evaluated patient, considered differential, d/w patient ED course: given IV toradol, zofran, pepcid, and IV NS and on reevaluation she is awake, alert, and in NAD. She reports resolution of her symptoms. Unfortunately, she has a markedly elevated HsTni (826). D/W Dr. Medrano (cardiology at [facility]), agrees with transfer to [facility], recommends hospitalist service for admission. D/W Dr. Allison (hospitalist at [facility]), accepts patient for transfer. Recommends starting heparin prior to departure. Patient had been given 325mg ASA and nitropaste on ACW. Heparin bolus and drip given/started prior to departure to [facility]. Departure - Departure Disposition: 02 Transfer Acute Care Hosp Clinical Impression: NSTEMI (non-ST elevated myocardial infarction) Condition: Stable Discharge Date/Time: 11/03/19 05:40
[2019-11-03] MEDS ORDERED: SODIUM CHLORIDE 0.9% 1,000 ML IV STA (02:09)
[2019-11-03] MEDS ORDERED: ONDANSETRON 4 MG/2 ML VIAL IVP STA (02:09)
[2019-11-03] MEDS ORDERED: KETOROLAC 30 MG/ML VIAL IVP STA (02:09)
[2019-11-03] MEDS ORDERED: FAMOTIDINE 20 MG/2 ML SYRINGE IVP STA (02:09)
[2019-11-03 02:15] LABS: BASOPHILS # (AUTO) 0.1 10^3/uL (0.0-0.1); BASOPHILS % (AUTO) 0.4 %; EOSINOPHILS % (AUTO) 0.1 %; HGB - HEMOGLOBIN 16.9 g/dL (12.0-16.0); LYMPHOCYTES # (AUTO) 1.5 10^3/uL (1.5-3.5); MEAN CORPUSCULAR HGB CONC 33.4 g/dL (32.0-36.0); MEAN CORPUSCULAR VOLUME 95.8 fL (81.0-99.0); MEAN PLATELET VOLUME 9.6 fL (7.9-10.8); MONOCYTES # (AUTO) 0.8 10^3/uL (0.0-1.0); MONOCYTES % (AUTO) 3.6 %; NEUTROPHILS # (AUTO) 19.3 10^3/uL (1.5-6.6); NEUTROPHILS % (AUTO) 88.1 %; PLT - PLATELET COUNT 336 10^3/uL (130-450); RED BLOOD COUNT 5.28 10^6/uL (4.20-5.40); RED CELL DISTRIBUTION WIDTH 12.6 % (12.0-15.0)
[2019-11-03 02:34] LABS: ALBUMIN 4.3 g/dL (3.2-5.5); BILIRUBIN,TOTAL 1.2 mg/dL (0.2-1.0); CALCIUM 9.4 mg/dL (8.5-10.3); CREATININE 0.9 mg/dL (0.4-1.0); TOTAL PROTEIN 8.6 g/dL (6.7-8.2)
[2019-11-03 02:48] LABS: DIFFERENTIAL COMMENT MANUAL=AUTO DIFF; PLATELET ESTIMATE, MANUAL NORMAL (130-450,000) (NORMAL); PLATELET MORPHOLOGY NORMAL APPEARANCE (NORMAL); RBC MORPHOLOGY (MULTIPLE) NORMAL APPEARANCE (NORMAL)
[2019-11-03] MEDS ORDERED: NITROGLYCERIN 2% PASTE TOP STA (03:06)
[2019-11-03] MEDS ORDERED: ASPIRIN CHEW 81 MG TABLET PO STA (03:06)
[2019-11-03 03:50] VITALS: BP 111/65
[2019-11-03] MEDS ORDERED: HEPARIN 5,000 UNIT/ML VIAL IVP STA (04:19)
[2019-11-03] MEDS ORDERED: HEPARIN 25000UNITS/500ML (D5W) 25,000 UNIT/500 ML BAG IV STA (04:19)
--- NOTE | 2019-11-03 09:41 | XRAY Report ---
Reason: Chest pain Procedure Date: 11/03/2019 Accession Number: [id number] / [id number] Procedure: XR - Chest 1 View X-Ray CPT Code: 76252 Final Report FULL RESULT: PROCEDURE: Chest 1 View X-Ray INDICATIONS: Chest pain TECHNIQUE: One view of the chest was acquired. COMPARISON: None available FINDINGS: Surgical changes and devices: None. Lungs and pleura: No pleural effusions or pneumothorax. Lungs are clear. Mediastinum: Mediastinal contours appear normal. Heart size is normal. Bones and chest wall: No suspicious bony lesions. Overlying soft tissues appear unremarkable. IMPRESSION: No acute cardiopulmonary disease. Reviewed by: Rama Daniels MD on 11/03/2019 7:39 AM PDT Approved by: Rama Daniels MD on 11/03/2019 7:39 AM PDT Station ID: [id number]
== END 2019-11-03 05:40 | disposition short-term general hospital (02) ==
LOC: ED 01:34
DX: I21.4 Non-ST elevation (NSTEMI) myocardial infarction (principal); R00.0 Tachycardia, unspecified; I10 Essential (primary) hypertension; E11.9 Type 2 diabetes mellitus without complications; Z79.84 Long term (current) use of oral hypoglycemic drugs; Z79.82 Long term (current) use of aspirin; F17.200 Nicotine dependence, unspecified, uncomplicated
CPT/HCPCS: 36415; 71045; 80053; 83690; 84484; 85025; 85379; 93005; 96361; 96374; 96375; 99285; A9270

== ENCOUNTER 2021-07-18 13:35 | Outpatient (CLI) | payer MEDICAID ==
[2021-07-18 14:07] LABS: CREATININE,URINE 50.7 mg/dL
[2021-07-18 14:10] LABS: MICROALBUMIN,URINE < 0.2 mg/dL (0-300.0)
[2021-07-18 20:31] LABS: ESTIMATED AVERAGE GLUCOSE 169 mg/dL (70-100); HEMOGLOBIN A1c% 7.5 % (4.27-6.07)
== END 2021-07-18 13:36 | disposition home or self-care (01) ==
LOC: LAB 13:35
PROVIDERS: ATTEND Student in an Organized Health Care Education/Training Program
DX: E11.69 Type 2 diabetes mellitus with other specified complication (principal); E78.5 Hyperlipidemia, unspecified; I10 Essential (primary) hypertension
CPT/HCPCS: 36415; 82043; 82570; 83036

== ENCOUNTER 2021-08-08 13:36 | Outpatient (CLI) | payer MEDICAID ==
--- NOTE | 2021-08-09 07:22 | Mammography Report ---
BILATERAL DIGITAL SCREENING MAMMOGRAM 3D/2D: 08/08/2021 CLINICAL: Routine screening. Family history of breast cancer. Comparison is made to exams dated: 05/23/2019 mammogram and 02/05/2018 mammogram - [facility]. There are scattered fibroglandular elements in both breasts. No significant masses, calcifications, or other findings are seen in either breast. There has been no significant interval change. IMPRESSION: NEGATIVE There is no mammographic evidence of malignancy. A 1 year screening mammogram is recommended. This exam was interpreted at Station ID: [id number]. NOTE: For mammograms, a report in lay terms will be sent to the patient. Approximately 15% of breast malignancies will not be visualized mammographically. In the management of a palpable breast mass, a negative mammogram must not discourage biopsy of a clinically suspicious lesion. Electronically Signed By: David Salomon M.D. aty/penrad:08/08/2021 16:18:02 ACR BI-RADS Category 1: Negative 3341F PARENCHYMAL PATTERN: (A) - The breast(s) demonstrate(s) scattered fibroglandular densities. BI-RADS CATEGORY: (1) - 1 RECOMMENDATION: (ANNUAL) - Recommend routine annual screening mammography. [id number] 1 year screening LATERALITY: (B)
== END 2021-08-08 13:37 | disposition home or self-care (01) ==
LOC: DI.S 13:36
PROVIDERS: ATTEND Student in an Organized Health Care Education/Training Program
DX: Z12.31 Encounter for screening mammogram for malignant neoplasm of breast (principal); Z80.3 Family history of malignant neoplasm of breast

== ENCOUNTER 2021-10-28 14:31 | Outpatient (CLI) | payer MEDICAID ==
[2021-10-28 15:00] LABS: CREATININE,URINE 80.7 mg/dL; MICROALBUM/CREATININE RATIO,UR 3.7 ug/mg (<30.0); MICROALBUMIN,URINE 0.3 mg/dL (0-300.0)
[2021-10-28 22:08] LABS: ESTIMATED AVERAGE GLUCOSE 217 mg/dL (70-100); HEMOGLOBIN A1c% 9.2 % (4.27-6.07)
== END 2021-10-28 14:32 | disposition home or self-care (01) ==
LOC: LAB 14:31
PROVIDERS: ATTEND Student in an Organized Health Care Education/Training Program
DX: E11.69 Type 2 diabetes mellitus with other specified complication (principal); E78.5 Hyperlipidemia, unspecified; I10 Essential (primary) hypertension
CPT/HCPCS: 36415; 82043; 82570; 83036

== ENCOUNTER 2022-04-30 16:03 | Outpatient (CLI) | payer MEDICAID | END 2022-04-30 23:59 | disposition critical access hospital (66) | LOC: EMS 16:03 | DX: R11.2 Nausea with vomiting, unspecified (principal); R19.7 Diarrhea, unspecified; R10.10 Upper abdominal pain, unspecified | CPT/HCPCS: A0425; A0427; A0999 ==

== ENCOUNTER 2022-04-30 16:34 | Emergency (ER) | payer MEDICAID ==
[2022-04-30 17:01] LABS: BASOPHILS # (AUTO) 0.1 10^3/uL (0.0-0.1); BASOPHILS % (AUTO) 0.3 %; EOSINOPHILS % (AUTO) 0.1 %; HCT - HEMATOCRIT 49.2 % (37.0-47.0); HGB - HEMOGLOBIN 16.1 g/dL (12.0-16.0); LYMPHOCYTES # (AUTO) 1.1 10^3/uL (1.5-3.5); LYMPHOCYTES % (AUTO) 6.5 %; MEAN CORPUSCULAR HEMOGLOBIN 31.4 pg (27.0-31.0); MEAN CORPUSCULAR HGB CONC 32.7 g/dL (32.0-36.0); MEAN CORPUSCULAR VOLUME 95.9 fL (81.0-99.0); MEAN PLATELET VOLUME 9.8 fL (7.9-10.8); MONOCYTES # (AUTO) 0.7 10^3/uL (0.0-1.0); MONOCYTES % (AUTO) 3.8 %; NEUTROPHILS # (AUTO) 15.2 10^3/uL (1.5-6.6); NEUTROPHILS % (AUTO) 88.7 %; PLT - PLATELET COUNT 283 10^3/uL (130-450); RED BLOOD COUNT 5.13 10^6/uL (4.20-5.40); RED CELL DISTRIBUTION WIDTH 12.5 % (12.0-15.0); WHITE BLOOD COUNT 17.2 x10^3/uL (4.8-10.8)
[2022-04-30 17:15] LABS: ALBUMIN 4.2 g/dL (3.2-5.5); ALBUMIN/GLOBULIN RATIO 1.1 (1.0-2.2); BILIRUBIN,TOTAL 0.6 mg/dL (0.2-1.0); CALCIUM 9.9 mg/dL (8.5-10.3); CREATININE 0.9 mg/dL (0.4-1.0); POTASSIUM 4.4 mmol/L (3.5-5.0); TOTAL PROTEIN 7.9 g/dL (6.7-8.2)
--- NOTE | 2022-04-30 18:05 | ED Physician Documentation ---
PD HPI ABD PAIN - Stated complaint Stated Complaint: N/V/D - Chief complaint Chief Complaint: Abd Pain - History obtained from History obtained from: Patient - History of Present Illness Quality: Cramping Location: All over / everywhere Improved by: No: Eating, Laying still, Vomiting, BM, Position, Meds Worsened by: No: Eating, Moving, Breathing, Position, Palpation Associated symptoms: Nausea, Vomiting, Diarrhea. No: Fever, Hematemesis, Constipation, Melena, Hematochezia, Dysuria, Hematuria, Chest pain, Dizzy, Near syncope / syncope, Loss of appetite, Weight loss, Vaginal bleeding Similar symptoms before: Has not had sx before Recently seen: Not recently seen - Additional information Additional information: This is a 57-year-old female with apast medical history of obesity type 2 diabetes presents with a 1 day history of abdominal pain, abdominal distention, nausea, vomiting, diarrhea. She states it started yesterday evening after eating shrimp. She believes that she has "food poisoning." She states she is got generalized abdominal pain, no focal pain and has vomited several times and has had several episodes of soft, nonbloody stools. She cannot identify any alleviating or exacerbating factors. She still feels somewhat hungry and thirsty.She has not had cough or URI symptoms, no chest pain or difficulty breathing, no dysuria or other urinary symptoms. She has not had any fever or chills. 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 - Present Medications Home Medications: Ambulatory Orders Medication Instructions Recorded Confirmed Albuterol Sulfate [Proventil Hfa 1 - 2 puffs INH Q4H PRN #1 inhaler 11/16/17 12/04/18 Inhaler] Aspirin [Adult Low Dose Aspirin EC] 81 mg .ROUTE DAILY 01/15/18 12/04/18 Atorvastatin Calcium 20 mg PO DAILY 01/15/18 12/04/18 Empagliflozin [Jardiance] 25 mg PO DAILY 01/15/18 12/04/18 Escitalopram Oxalate [Lexapro] 20 mg PO DAILY 01/15/18 12/04/18 SITagliptin [Januvia] 100 mg PO DAILY 01/15/18 12/04/18 Varenicline Tartrate [Chantix] 1 mg PO DAILY 01/15/18 12/04/18 clonazePAM [Clonazepam] 0.5 mg PO DAILY 01/15/18 12/04/18 lisinopriL [Lisinopril] 10 mg PO DAILY 01/15/18 12/04/18 HYDROcod/ACETAM 5/325 [[place] 5/325] 1 - 2 ea PO Q6H PRN #15 tablet 12/04/18 Lidocaine Viscous 2% [Xylocaine 15 ml MM Q4H PRN #1 bottle 12/04/18 Viscous 2%] Clindamycin HCl [Clindamycin 300MG 300 mg PO Q6H #40 capsule 06/24/19 CAP] Oxycodone HCl/Acetaminophen 1 - 2 each PO Q6H PRN #14 tablet 06/24/19 [Percocet 5-325 mg Tablet] Oxycodone HCl/Acetaminophen 1 each PO Q6H PRN #12 tablet 09/12/19 [Percocet 10-325 mg Tablet] cephALEXin [Keflex] 500 mg PO TID #20 capsule 09/12/19 dexAMETHasone [Decadron] 4 mg PO DAILY #5 tablet 09/12/19 Ciprofloxacin [Cipro] 500 mg PO Q12H 5 Days #10 tablet 04/30/22 Prochlorperazine Maleate 10 mg PO Q6H #12 tablet 04/30/22 [Compazine] metroNIDAZOLE [Flagyl] 1 tab ORAL TID 7 Days #21 tab 04/30/22 - Allergies Allergies/Adverse Reactions: Allergies Allergy/AdvReac Type Severity Reaction Status Date / Time No Known Drug Allergies Allergy Verified 11/03/19 01:46 - Social History Does the pt smoke?: Yes Smoking Status: Current every day smoker Does the pt drink ETOH?: Yes Does the pt have substance abuse?: Yes - Immunizations Immunizations are current?: Yes - POLST Patient has POLST: No PD ED PE NORMAL - Vitals Vital signs reviewed: Yes - General General: Alert and oriented X 3, No acute distress, Well developed/nourished - HEENT HEENT: Atraumatic, Moist mucous membranes, Pharynx benign - Cardiac Cardiac: RRR, No murmur, No gallop, No rub - Respiratory Respiratory: No respiratory distress, Clear bilaterally - Abdomen Abdomen: Soft, Other (Morbidly obese, mildly distended, generalized tenderness without any focal tenderness or guarding, active bowel tones) - Back Back: No CVA TTP, No spinal TTP - Derm Derm: Normal color, Warm and dry, No rash - Extremities Extremities: No deformity, No edema - Neuro Neuro: Alert and oriented X 3 Eye Opening: Spontaneous Motor: Obeys Commands Verbal: Oriented GCS Score: 15 - Psych Psych: Normal mood, Normal affect Results - Vitals Vitals: Vital Signs - 24 hr 04/30/22 04/30/22 04/30/22 16:46 18:05 20:00 Temperature 37.2 C Heart Rate 94 94 93 Respiratory 19 17 Rate Blood Pressure 188/87 H 169/93 H 167/86 H O2 Saturation 94 94 100 04/30/22 22:00 Temperature Heart Rate 88 Respiratory 17 Rate Blood Pressure 165/66 H O2 Saturation 93 Oxygen O2 Source Room air - Labs Labs: Laboratory Tests 04/30/22 04/30/22 04/30/22 16:54 16:54 19:15 WBC 17.2 H RBC 5.13 Hgb 16.1 H Hct 49.2 H MCV 95.9 MCH 31.4 H MCHC 32.7 RDW 12.5 Plt Count 283 MPV 9.8 Neut # (Auto) 15.2 H Lymph # (Auto) 1.1 L [place] # (Auto) 0.7 Eos # (Auto) 0.0 Baso # (Auto) 0.1 Absolute Nucleated RBC 0.00 Nucleated RBC % 0.0 Sodium 137 Potassium 4.4 Chloride 96 L Carbon Dioxide 28 Anion Gap 13.0 BUN 14 Creatinine 0.9 Estimated GFR (MDRD) 64 L Glucose 333 H Lactic Acid Calcium 9.9 Total Bilirubin 0.6 AST 19 ALT 15 Alkaline Phosphatase 116 Total Protein 7.9 Albumin 4.2 Globulin 3.7 Albumin/Globulin Ratio 1.1 Lipase 24 Urine Color YELLOW Urine Clarity CLEAR Urine pH 8.0 H Ur Specific [place] 1.020 Urine Protein TRACE Urine Glucose (UA) >=1000 H Urine Ketones 15 H Urine Occult Blood NEGATIVE Urine Nitrite NEGATIVE Urine Bilirubin NEGATIVE Urine Urobilinogen 0.2 (NORMAL) Ur Leukocyte Esterase NEGATIVE Ur Microscopic Review NOT INDICATED Urine Culture Comments NOT INDICATED 11/27/22 20:40 WBC RBC Hgb Hct MCV MCH MCHC RDW Plt Count MPV Neut # (Auto) Lymph # (Auto) [place] # (Auto) Eos # (Auto) Baso # (Auto) Absolute Nucleated RBC Nucleated RBC % Sodium Potassium Chloride Carbon Dioxide Anion Gap BUN Creatinine Estimated GFR (MDRD) Glucose Lactic Acid 2.0 Calcium Total Bilirubin AST ALT Alkaline Phosphatase Total Protein Albumin Globulin Albumin/Globulin Ratio Lipase Urine Color Urine Clarity Urine pH Ur Specific [place] Urine Protein Urine Glucose (UA) Urine Ketones Urine Occult Blood Urine Nitrite Urine Bilirubin Urine Urobilinogen Ur Leukocyte Esterase Ur Microscopic Review Urine Culture Comments PD MEDICAL DECISION MAKING - ED course Complexity details: reviewed results, re-evaluated patient, considered differential, d/w patient ED course: This is a 57-year-old female with past medical history as noted above who presen dionna with generalized abdominal pain as well as nausea, vomiting and diarrhea today. Symptoms started after eating shrimp yesterday. Patient had stable vs with a reassuring physical exam, afebrile with a soft abdomen, no focal tenderness. We did obtain labs which are significant for a white count of 17,000 with otherwise stable. She does not have UTI. Given elevated white blood cell count and abdominal pain I did proceed with a CT scan that showed signs concerning for colitis. There are no no other focal findings. Patient's lactate is 2.0, vital signs are stable and she was given antiemetics with improvement in her symptoms. Given stable physical exam and vital signs, I do think she stable for discharge home with antibiotics, she received first dose here including a dose of ceftriaxone and Flagyl and will be discharged on Cipro and Flagyl for colitis. She was advised to adhere to a clear liquid diet and only advance if tolerated. I reviewed return precautions in detail with the patient including fever, increasing abdominal pain, abdominal distention, hematochezia or hematemesis or other new concerns. Departure - Departure Disposition: 01 Home, Self Care Clinical Impression: Colitis Abdominal pain Qualifiers: Abdominal location: generalized Qualified Code(s): R10.84 - Generalized abdominal pain Condition: Good Instructions: Abdominal Pain Prescriptions: Ciprofloxacin [Cipro] 500 mg PO Q12H 5 Days #10 tablet Prochlorperazine Maleate [Compazine] 10 mg PO Q6H #12 tablet metroNIDAZOLE [Flagyl] 1 tab ORAL TID 7 Days #21 tab Comments: You presented with generalized abdominal pain after eating shrimp. We did a work-up here and it does appear to have some inflammation in the colon called colitis. This may be related to something you ate or also may relate be related to infection. Going to treat with antibiotics, you received your doses here tonight we should resume antibiotics tomorrow and you can pick these up from the pharmacy. Have also given you a nausea medication to use as needed. Please stick with a clear liquid diet and advance to a light soft diet if tolerated. If you develop a fever or worsening symptoms, return to the ER.
[2022-04-30] MEDS ORDERED: iohexoL-300 100 ML VIAL ONE (18:06)
[2022-04-30] MEDS: iohexoL-300 100 ML VIAL IVP ONE (18:42)
[2022-04-30] MEDS: PROCHLORPERAZINE 10 MG/2 ML VIAL IVP STA (18:47)
[2022-04-30] MEDS: SODIUM CHLORIDE 0.9% 1,000 ML IV STA (18:47)
--- NOTE | 2022-04-30 19:18 | CT Report ---
PROCEDURE: ABDOMEN/PELVIS W INDICATIONS: abd pain, fever CONTRAST: 100ml omni 300 TECHNIQUE: After the administration of IV contrast, 5 mm thick sections acquired from the diaphragms to the symp hysis. 5 mm thick coronal and sagittal reformats were acquired. For radiation dose reduction, the f ollowing was used: automated exposure control, adjustment of mA and/or kV according to patient size. COMPARISON: None. FINDINGS: Image quality: Excellent. ABDOMEN: Lung bases: Lung bases are clear. Heart size is normal. Small hiatal hernia. Solid organs: Liver and spleen are normal in size and enhancement. Mild hepatic steatosis. Gallblad emre is normal. Biliary system is non dilated. Pancreas enhances normally. No adrenal nodules. Kid neys demonstrate normal size and enhancement, without hydronephrosis. There is a 4.7 cm simple cyst in the mid left kidney. Numerous smaller cysts are seen bilaterally. Peritoneum and bowel: There is diffuse colonic wall thickening involving the descending and sigmoid colon consistent with colitis. Bowel loops demonstrate normal wall thickness and caliber. No free ai r. There is a trace amount of free fluid in the left paracolic gutter and cul-de-sac. Nodes and vessels: No retroperitoneal or mesenteric adenopathy by size criteria. Mild mesenteric st randing and numerous small mesenteric lymph nodes, nonspecific. Aorta and inferior vena cava are norm al in size. Severe atherosclerosis. Miscellaneous: Small fat-containing umbilical hernia. PELVIS: Genitourinary: Bladder wall thickness is normal. Miscellaneous: No inguinal hernias or adenopathy. Bones: No suspicious bony lesions. No vertebral body compression fractures. Moderate degenerative disc disease and facet arthropathy in lumbar spine. IMPRESSION: 1. Diffuse colonic wall thickening involving the descending and sigmoid colon consistent with colitis . Etiologies may be inflammatory bowel disease, infection or ischemia. Recommend clinical correlation . 2. Severe atherosclerosis. 3. Mild hepatic steatosis. Reviewed by: Ana Lr MD on 04/30/2022 7:17 PM PST Approved by: Ana Lr MD on 04/30/2022 7:17 PM PST Station ID: [id number]
[2022-04-30 19:19] LABS: BILIRUBIN,URINE NEGATIVE (NEGATIVE); GLUCOSE, URINE (UA) >=1000 mg/dL (NEGATIVE); KETONES,URINE (UA) 15 mg/dL (NEGATIVE); LEUKOCYTE ESTERASE, URINE NEGATIVE (NEGATIVE); NITRITE,URINE NEGATIVE (NEGATIVE); OCCULT BLOOD,URINE NEGATIVE (NEGATIVE); PROTEIN,URINE TRACE mg/dL (NEGATIVE); UROBILINOGEN,URINE 0.2 (NORMAL) E.U./dL (NORMAL)
[2022-04-30 19:20] LABS: CLARITY,URINE CLEAR (CLEAR)
[2022-04-30] MEDS ORDERED: cefTRIAXone 2 GM VIAL ONE (19:59)
[2022-04-30] MEDS: cefTRIAXone 2 GM in SODIUM CHLORIDE 0.9% MINIBAG 100 ML IV STA (20:09)
[2022-04-30] MEDS: metroNIDAZOLE 500 MG/100 ML 500 MG/100 ML BAG IV ONE (21:35)
[2022-04-30 22:51] VITALS: BP 151/72
== END 2022-04-30 23:03 | disposition home or self-care (01) ==
LOC: ED 16:34
DX: K52.9 Noninfective gastroenteritis and colitis, unspecified (principal); E11.9 Type 2 diabetes mellitus without complications; I10 Essential (primary) hypertension; I25.2 Old myocardial infarction
CPT/HCPCS: 36415; 74177; 80053; 81003; 83605; 83690; 85025; 96365; 96367; 96375; 99282; 99284; Q9967; 81001; 87086